=== PATIENT | female | born 1955 | race Caucasian/White ===

== ENCOUNTER 2016-09-02 12:21 | Emergency (ER) | payer BC ==
[2016-09-02 13:53] VITALS: BP 135/87
--- NOTE | 2016-09-02 15:09 | UC ---
Throat Pain/Nasal Reynaldo HPI - HPI Summary HPI Summary: worsening sinus pain/pressure/drainage for 2 weeks. Started off as a cold, never got better. Chilled, no measured fevers. No cough. Sometimes maxillary sinuses appear red and swollen. Pressure when bending forward, lying flat. No history of frequent sinusitis, maybe 1 or 2 in past. - History of Current Complaint Chief Complaint: UCRespiratory Stated Complaint: SINUS COMPLAINT Time Seen by Provider: 09/02/16 14:58 Hx Obtained From: Patient Hx Last Menstrual Period: 06/09 2012 Onset/Duration: Gradual Onset, Lasting Weeks - 2 Severity: Moderate Cough: Nonproductive - mild Associated Signs & Symptoms: Positive: Hoarseness, Sinus Discomfort, Nasal Discharge. Negative: Dysphagia, Drooling, Wheezing, Fever, Vomiting, Other - Epiglottits Risk Factors Epiglottis Risk Factors: Negative - Allergies/Home Medications Allergies/Adverse Reactions: Allergies Allergy/AdvReac Type Severity Reaction Status Date / Time No Known Allergies Allergy Verified 09/02/16 13:54 PMH/Surg Hx/FS Hx/Imm Hx Previously Healthy: Yes - Surgical History Surgical History: Yes Surgery Procedure, Year, and Place: 05/2012 hiatal hernia - Family History Known Family History: Negative: Respiratory Disease - no FH asthma - Social History Occupation: Employed Full-time Alcohol Use: Rare Substance Use Type: None Smoking Status (MU): Never Smoked Tobacco Review of Systems Constitutional: Chills, Fatigue Skin: Negative Eyes: Negative ENT: Nasal Discharge, Other - sinus pain Respiratory: Cough - dry, mild Cardiovascular: Negative Gastrointestinal: Negative Genitourinary: Negative Motor: Negative Neurovascular: Negative Musculoskeletal: Negative Neurological: Negative Psychological: Negative All Other Systems Reviewed And Are Negative: Yes Physical Exam Triage Information Reviewed: Yes Appearance: Well-Appearing, No Pain Distress, Well-Nourished Vital Signs: Initial Vital Signs Temp 98.3 F 09/02/16 13:49 Pulse 70 09/02/16 13:49 Resp 16 09/02/16 13:49 BP 135/87 09/02/16 13:49 Pulse Ox 100 09/02/16 13:49 Vital Signs Reviewed: Yes Eye Exam: Normal Eyes: Positive: Conjunctiva Clear ENT: Positive: Hearing grossly normal, Pharynx normal, Nasal congestion, TMs normal, Muffled/hoarse voice - hoarse. Negative: TM bulging, TM dull, TM red, Tonsillar swelling, Tonsillar exudate, Trismus Neck exam: Normal Respiratory: Positive: Lungs clear, Normal breath sounds, No respiratory distress, No accessory muscle use Cardiovascular Exam: Normal Musculoskeletal Exam: Normal Neurological Exam: Normal Psychological Exam: Normal Throat Pain/Nasal Course/Dx - Differential Dx/Diagnosis Differential Diagnosis/HQI/PQRI: Pharyngitis, Sinusitis, URI Provider Diagnoses: sinusitis Discharge - Discharge Plan Condition: Stable Disposition: HOME Prescriptions: Cephalexin CAP* [Keflex CAP*] 500 mg PO QID #40 cap Patient Education Materials: Sinusitis (ED) Referrals: Mar Lopes [Primary Care Provider] -
== END 2016-09-02 15:56 | disposition home or self-care (01) ==
LOC: UCCORT 12:21
DX: J32.9 Chronic sinusitis, unspecified (principal)
CPT/HCPCS: 99212; G0463

== ENCOUNTER 2017-08-30 12:29 | Emergency (ER) | payer BC ==
[2017-08-30 13:41] VITALS: BP 138/81
--- NOTE | 2017-08-30 13:54 | UC ---
Lower Extremity/Ankle HPI - HPI Summary HPI Summary: Right knee atraumtic pain for two weeks. It hurts more after a long day of standing on it. 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 there is some clicking but no locking. Aspercream does help. - History of Current Complaint Chief Complaint: UCLowerExtremity Stated Complaint: RIGHT KNEE COMPLAINT Time Seen by Provider: 08/30/17 13:37 Hx Obtained From: Patient Hx Last Menstrual Period: 06/09 2012 Onset/Duration: Gradual Onset, Lasting Weeks, Still Present Severity Initially: Moderate Severity Currently: Moderate Pain Intensity: 4 Aggravating Factor(s): Standing, Ambulation Alleviating Factor(s): Rest, Elevation, OTC Meds Able to Bear Weight: Yes - Allergies/Home Medications Allergies/Adverse Reactions: Allergies Allergy/AdvReac Type Severity Reaction Status Date / Time No Known Allergies Allergy Verified 08/30/17 13:37 Home Medications: Home Medications Ibuprofen TAB* [Advil TAB*] 400 mg PO Q6H PRN 08/30/17 [History Confirmed ] Vitamin THERAPEUTIC TAB* [Theragran TAB*] 1 tab PO DAILY 08/30/17 [History Confirmed 08/30/17] PMH/Surg Hx/FS Hx/Imm Hx Previously Healthy: Yes - Surgical History Surgical History: Yes Surgery Procedure, Year, and Place: Hiatal Herniorrhaphy, [place] - Family History Known Family History: Negative: Respiratory Disease - no FH asthma - Social History Occupation: Employed Full-time Alcohol Use: Rare Substance Use Type: None Smoking Status (MU): Never Smoked Tobacco Review of Systems Constitutional: Negative Skin: Negative Musculoskeletal: Arthralgia All Other Systems Reviewed And Are Negative: Yes Physical Exam Triage Information Reviewed: Yes Appearance: Well-Appearing, No Pain Distress, Well-Nourished Vital Signs: Initial Vital Signs Temp 97.9 F 08/30/17 13:35 Pulse 90 08/30/17 13:35 Resp 16 08/30/17 13:35 BP 138/81 08/30/17 13:35 Pulse Ox 100 08/30/17 13:35 Vital Signs Reviewed: Yes Eye Exam: Normal Eyes: Positive: Conjunctiva Clear ENT: Positive: Normal ENT inspection Neck: Positive: Nontender, No Lymphadenopathy Respiratory: Positive: No respiratory distress, No accessory muscle use Cardiovascular: Positive: Pulses Normal Abdomen Description: Negative: Distended, Guarding Musculoskeletal Exam: Other - No effusion, no redness. There is medial joint line tenderness. There is neg apley grind. No laxity with lockmans or valgus or varus stress. Musculoskeletal: Positive: Strength Intact, ROM Intact, No Edema Neurological: Positive: Alert, Muscle Tone Normal. Negative: Fatigued Psychological: Positive: Age Appropriate Behavior Skin: Negative: rashes Lower Extremity Course/Dx - Course Course Of Treatment: atraumatic knee pain worsened with use with some clicking. likely arthritis with meniscus injuyry. x ray, mobic capsicin cream. F/u with ortho if needed for possible injection. - Differential Dx/Diagnosis Provider Diagnoses: atraumatic right knee pain. Discharge - Discharge Plan Condition: Good Disposition: HOME Prescriptions: Capsaicin 0.025% CREAM* [Zostrix 0.025% CREAM*] 1 applic TOPICAL TID PRN #60 tu PRN Reason: Pain Meloxicam [Mobic] 7.5 mg PO BID #60 tablet Patient Education Materials: Knee Pain (ED) Referrals: Mar Lopes [Primary Care Provider] - Albert Alvarado MD [Medical Doctor] -
--- NOTE | 2017-08-30 14:11 | RAD ---
HISTORY: Atraumatic knee pain COMPARISONS: None VIEWS: 4, Frontal, lateral, axial, and oblique views of the right knee FINDINGS: BONE DENSITY: Normal. BONES: There is no displaced fracture. JOINTS: There is mild tricompartmental osteoarthritis. There is no suprapatellar joint effusion or lipohemarthrosis. ALIGNMENT: There is no dislocation. SOFT TISSUES: Unremarkable. OTHER FINDINGS: None. IMPRESSION: NO ACUTE OSSEOUS INJURY. IF SYMPTOMS PERSIST, RECOMMEND REPEAT IMAGING.
== END 2017-08-30 14:18 | disposition home or self-care (01) ==
LOC: UCCORT 12:29
DX: M25.561 Pain in right knee (principal)
CPT/HCPCS: 99212; G0463

== ENCOUNTER 2018-04-30 09:01 | Emergency (ER) | payer BC ==
[2018-04-30 09:43] VITALS: BP 132/82
--- NOTE | 2018-04-30 10:05 | UC ---
Skin Complaint HPI - HPI Summary HPI Summary: 62 year old female presents for tick bite to the right side of her neck. States she found tick last evening and removed immediately. She believes tick was attached for less than an hour. She brought the tick with her to the clinic. Appears to be a nymphal deer tick was not engorged. She denies fever, chills, flulike symptoms, rash, myalgias, joint pain or swelling. - History of Current Complaint Chief Complaint: UCSkin Time Seen by Provider: 04/30/18 09:59 Stated Complaint: TICK BITE Hx Obtained From: Patient Hx Last Menstrual Period: n/a Pain Intensity: 0 Location: Other - right side of neck Character: Pruritus Aggravating Factor(s): Nothing Alleviating Factor(s): Nothing Related History: Insect Bite/Sting - Allergy/Home Medications Allergies/Adverse Reactions: Allergies Allergy/AdvReac Type Severity Reaction Status Date / Time No Known Allergies Allergy Verified 04/30/18 09:40 Review of Systems Constitutional: Negative - Right sided neck Skin: Other - See HPI Respiratory: Negative Cardiovascular: Negative Musculoskeletal: Negative Is Patient Immunocompromised?: No All Other Systems Reviewed And Are Negative: Yes PMH/Surg Hx/FS Hx/Imm Hx Previously Healthy: Yes - Denies significant PMH - Surgical History Surgical History: Yes Surgery Procedure, Year, and Place: Hiatal Herniorrhaphy, 2011, [place] - Family History Known Family History: Negative: Respiratory Disease - no FH asthma Family History: Noncontributory - Social History Occupation: Employed Full-time Lives: With Family Alcohol Use: Rare Substance Use Type: None Smoking Status (MU): Never Smoked Tobacco Physical Exam Triage Information Reviewed: Yes Appearance: Well-Appearing, No Pain Distress, Well-Nourished Vital Signs: Initial Vital Signs Temp 98 F 04/30/18 09:37 Pulse 83 04/30/18 09:37 Resp 14 04/30/18 09:37 BP 132/82 04/30/18 09:37 Pulse Ox 100 04/30/18 09:37 Vital Signs Reviewed: Yes Neck: Positive: Supple, Nontender, No Lymphadenopathy Respiratory: Positive: Lungs clear, Normal breath sounds, No respiratory distress Cardiovascular: Positive: RRR, No Murmur Musculoskeletal Exam: Normal Neurological: Positive: Alert Skin: Positive: significant lesion(s) - Single erythematous pruritic macular lesion <1 cm to right side of neck Course/Dx - Course Course Of Treatment: 62-year-old female presents with tick bite to the right side of her neck. Tick was attached for less than an hour and not engorged. Recommend watchful waiting and follow up with PCP as needed. Patient verbalizes understanding and agrees with plan of care. - Diagnoses Provider Diagnoses: Tick bite of neck Discharge - Sign-Out/Discharge Documenting (check all that apply): Patient Departure All imaging exams completed and their final reports reviewed: No Studies - Discharge Plan Condition: Stable Disposition: HOME Patient Education Materials: Tick Bite (ED) Referrals: Mar Lopes [Primary Care Provider] - If Needed Additional Instructions: Tick bites where the tick has been attached for less than 36 hours and was not engorged with blood have a very small chance transmitting Lyme disease. Preventative antibiotics are not indicated in these cases. For the next several weeks, monitor for signs of Lyme disease including a bulls eye rash, flu-like symptoms, extreme fatigue, muscle aches, and joint pain or swelling. Seek immediate medical attention should any of these occur. You blood pressure was mildly elevated in the clinic today. It is recommended that you make an appointment to follow up with your primary care provider to have this rechecked. - Billing Disposition and Condition Condition: STABLE Disposition: Home
== END 2018-04-30 10:15 | disposition home or self-care (01) ==
LOC: UCCORT 09:01
DX: T63.481A Toxic effect of venom of other arthropod, accidental (unintentional), initial encounter (principal); Y92.9 Unspecified place or not applicable
CPT/HCPCS: 99211; G0463

== ENCOUNTER 2019-01-08 14:46 | Emergency (ER) | payer BC ==
[2019-01-08 15:10] VITALS: BP 125/55
--- NOTE | 2019-01-08 15:45 | ED ---
Skin Complaint - HPI Summary HPI Summary: 63 yr old female with the complaint of rash and itching to the left and right arms. Onset about ten days ago. 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 She complains of itching, redness, and some oozing from the left arm and some also on the right arm. No other complaints. - History of Current Complaint Chief Complaint: UCSkin Time Seen by Provider: 01/08/19 15:33 Stated Complaint: LEFT ARM SKIN Hx Last Menstrual Period: n/a Pain Intensity: 0 - Allergy/Home Medications Allergies/Adverse Reactions: Allergies Allergy/AdvReac Type Severity Reaction Status Date / Time No Known Allergies Allergy Verified 01/08/19 15:10 Home Medications: Home Medications diphenhydrAMINE HCl [Benadryl Allergy] 25 mg PO DAILY 01/08/19 [History Confirmed 01/08/19] PMH/Surg Hx/FS Hx/Imm Hx - Surgical History Surgery Procedure, Year, and Place: Hiatal Herniorrhaphy, 2011, [place] Infectious Disease History: No Infectious Disease History: Denies: Traveled Outside the [place] in Last 30 Days - Family History Known Family History: Positive: None Negative: Respiratory Disease - no FH asthma Family History: Noncontributory - Social History Alcohol Use: Rare Substance Use Type: Reports: None Smoking Status (MU): Never Smoked Tobacco Review of Systems Constitutional: Negative Positive: Rash All Other Systems Reviewed And Are Negative: Yes Physical Exam Triage Information Reviewed: Yes Vital Signs On Initial Exam: Initial Vitals Temp Pulse Resp BP Pulse Ox 98.6 F 90 16 125/55 99 01/08/19 15:07 01/08/19 15:07 01/08/19 15:07 01/08/19 15:07 01/08/19 15:07 Vital Signs Reviewed: Yes Appearance: Positive: Well-Appearing, No Pain Distress Skin: Positive: Other - rash on left and right arm with left much more involved. redness, blistering and some lichen dermatitis changes. No secondary impetigo or cellulitis. consistent with contact dermatitis. Head/Face: Positive: Normal Head/Face Inspection Eyes: Positive: EOMI, GRETA ENT: Positive: Normal ENT inspection Neck: Positive: Nontender Respiratory/Lung Sounds: Positive: Clear to Auscultation, Breath Sounds Present Cardiovascular: Positive: RRR. Negative: Murmur Abdomen Description: Negative: Distended Musculoskeletal: Positive: Strength/ROM Intact Neurological: Positive: Sensory/Motor Intact, Alert, Oriented to Person Place, Time, CN Intact II-III, Normal Gait, Speech Normal Psychiatric: Positive: Normal Diagnostics - Vital Signs Vital Signs Temp Pulse Resp BP Pulse Ox 01/08/19 15:07 98.6 F 90 16 125/55 99 - Laboratory Lab Statement: Any lab studies that have been ordered have been reviewed, and results considered in the medical decision making process. Course/Dx - Course Course Of Treatment: Allergic contact dermatitis. - Diagnoses Provider Diagnoses: Poison radha dermatitis Discharge - Sign-Out/Discharge Documenting (check all that apply): Patient Departure All imaging exams completed and their final reports reviewed: No Studies - Discharge Plan Condition: Good Disposition: HOME Prescriptions: methylPREDNISolone [Medrol] 4 mg PO .SEE BRITTANY INSTRUCTION #1 brittany Patient Education Materials: Poison Radha (ED) Referrals: Mar Lopes [Primary Care Provider] - 2 Days - Billing Disposition and Condition Condition: GOOD Disposition: Home
== END 2019-01-08 15:44 | disposition home or self-care (01) ==
LOC: UCCORT 14:46
DX: L23.7 Allergic contact dermatitis due to plants, except food (principal); T63.791A Toxic effect of contact with other venomous plant, accidental (unintentional), initial encounter; Y92.9 Unspecified place or not applicable
CPT/HCPCS: 99212; G0463